=== PATIENT | male | born 1995 | race Caucasian/White ===

== ENCOUNTER 2017-06-23 18:12 | Emergency (ER) | payer MEDICAID ==
[~2017-06-23] VITALS: Ht 170.2 cm; Wt 88.2 kg
[2017-06-23 18:35] VITALS: Ht 170.2 cm; Wt 88.2 kg
[2017-06-23] MEDS ORDERED: ONDA4TAB14 PO (19:41)
[2017-06-23] MEDS ORDERED: ACET325T33 PO (19:41)
[2017-06-23] MEDS ORDERED: MINE3.5O30 BOTH EYES (19:41)
--- NOTE | 2017-06-23 19:49 | ERD ---
ER Documentation Chief Complaint Chief Complaint epigastric pain since thursday and bilateral eye redness for 2 days HPI This is a 22-year-old male presenting to the emergency department complaining of bilateral eye redness for the past 2 days. He denies any pain, vision changes. He denies any discharge, fevers. Patient also states that on Thursday he had mild epigastric pain with one episode of vomiting the other day however he does not have any pain right now. Patient states that he took the medication for abdominal spasms and [place] for his pain which has helped him ROS All systems reviewed and are negative except as per history of present illness. Medications Home Meds Active Scripts Mineral Oil/Petrolatum,White (ARTIFICIAL TEARS EYE OINT) 3.5 Gm Oint...g., 1 APPLIC BOTH EYES NEEDED Y for DRY EYES, #1 EA Prov:DEE DEMARCO PA-C 06/23/17 Ondansetron (Ondansetron Odt) 4 Mg Tab.rapdis, 4 MG PO Q6H Y for NAUSEA AND/OR VOMITING, #10 TAB Prov:DEE DEMARCO PA-C 06/23/17 Acetaminophen* (Tylenol*) 325 Mg Tablet, 2 TAB PO Q6 Y for PAIN AND OR ELEVATED TEMP, #30 TAB Prov:DEE DEMARCO PA-C 06/23/17 Allergies Allergies: Coded Allergies: No Known Allergy (Unverified , 06/23/17) PMhx/Soc Medical and Surgical Hx: pt denies Medical Hx, pt denies Surgical Hx Hx Alcohol Use: No Hx Substance Use: Yes (MARIJUANA) Hx Tobacco Use: No Smoking Status: Never smoker Physical Exam Vitals Vital Signs Date Time Temp Pulse Resp B/P Pulse Ox O2 Delivery O2 Flow Rate FiO2 06/23/17 18:35 98.3 66 16 142/88 99 Physical Exam GENERAL: well-developed/well-nourished, in no apparent distress, non-toxic appearing HENT: NC/AT, moist mucous membranes EYES: Conjunctiva normal, bilateral eye redness NECK: Supple, no lymphadenopathy PULM: CTA bilaterally, no rales, rhonchi, or wheezing heard CV: Normal S1S2, RRR, good capillary refill GI: Soft, non-distended, nontender Normal bowel sounds, no masses or organomegaly felt on exam No gross peritonitis, no bruits Negative Rovsing, negative Conroy, negative McBurney's point, Negative CVAT BACK: No masses EXT: No clubbing, cyanosis, or edema NEURO: Alert and Orientated SKIN: Intact, normal turgor PSYCH: Normal mood and mentation Procedures/MDM 22-year-old male presents to the emergency department complaining of epigastric pain, nausea and episode of vomiting which has resolved. It could have been gastritis, gastritis however resolution suggests no acute abdomen. Patient also complains of bilateral eye redness which is likely viral versus allergic conjunctivitis. No evidence of bacterial condiment today. Patient is stable to be discharged home to follow-up with primary care physician. I have given him a prescription for artificial tears, Zofran and Tylenol. Return precautions given Departure Diagnosis: Primary Impression: Viral conjunctivitis Additional Impression: Epigastric pain Condition: Stable Patient Instructions: Conjunctivitis, Allergic, Conjunctivitis, Viral, Epigastric Pain (Uncertain Cause) Additional Instructions: Visite a [facility] para un EXAMEN.Regrese a estas instalaciones si no se mejora la esperbamos o la le dinicholasmos. DEE DEMARCO PA-C Jun 23, 2017 19:49
[2017-06-23 19:54] VITALS: BP 135/75; PULSE 63; RESP 20; TEMP 98.6
== END 2017-06-23 19:51 | disposition home or self-care (01) ==
LOC: FTE 18:12
DX: H10.9 Unspecified conjunctivitis (principal); R11.10 Vomiting, unspecified
CPT/HCPCS: 99283